=== PATIENT | female | born 1990 | race Two or more races ===

== ENCOUNTER 2023-12-31 22:00 | Emergency (ER) | payer MEDICAID, OTHER ==
[~2023-12-31] VITALS: Ht 162.6 cm; Wt 69.6 kg
[2023-12-31 22:10] VITALS: BP 104/69; RESP 16; TEMP 98.4; O2SAT 98
[2023-12-31 22:16] VITALS: PULSE 63
[2023-12-31] MEDS: KETOROLAC TROMETH 60MG/2ML VIAL IM ONE (22:54)
[2023-12-31 23:14] LABS: Basophils # (auto) 0 10 ^3/uL (0-0.2); Basophils % (auto) 0.4 % (0.0-2.0); Eosinophils # (auto) 0.2 10 ^3/uL (0-0.8); Eosinophils % (auto) 2.9 % (0.0-7.0); Hematocrit 39.8 % (36.0-46.0); Hemoglobin 13.6 g/dL (12.2-16.2); Lymphocytes # (auto) 3.5 10 ^3/uL (0.4-5.4); Mean Corpuscular Hemoglobin 30.5 pg (28.0-32.0); Mean Corpuscular Hgb Conc. 34.2 g/dL (32.0-36.0); Mean Corpuscular Volume 89.1 fL (80.0-100.0); Monocytes # (auto) 0.3 10 ^3/uL (0-1.3); Monocytes % (auto) 4.3 % (0.0-12.0); Neutrophils # (auto) 3.5 10 ^3/uL (1.6-8.6); Neutrophils % (auto) 46.4 % (37.0-80.0); Nucleated Red Blood Cells % 0.1 %; Platelet Count (auto) 246 10^3/uL (140-450); Red Blood Cells 4.46 10^6/uL (4.0-5.20); Red Cell Distribution Width 14.8 % (11.8-14.3); White Blood Cell 7.5 10^3/uL (4.4-10.8)
[2023-12-31 23:25] LABS: Urine Bacteria None Seen /hpf (None Seen)
[2023-12-31 23:27] LABS: Chloride 109 mmol/L (98-107); Sodium 141 mmol/L (136-145)
[2023-12-31 23:28] LABS: Anion Gap 5 (5-15); Calcium 9.6 mg/dL (8.7-10.4); Carbon Dioxide 27 mmol/L (20-31)
[2023-12-31 23:33] LABS: BUN/Creatinine Ratio 14.7 (10.0-20.0); Blood Urea Nitrogen 11 mg/dL (9-23); Glucose 101 mg/dL (74-106)
[2023-12-31] MEDS: LACTULOSE 20Gm/30ML SOLN PO ONE (23:44)
[2023-12-31 23:45] LABS: Urine Blood Negative /uL (Negative); Urine Clarity Clear (Clear); Urine Color Colorless (Yellow); Urine Protein, UAD Negative (Negative); Urine Urobilinogen Normal (Negative); Urine WBC 1 /hpf (0 - 5)
[2024-01-01] MEDS ORDERED: LACT10SO3 PO (00:09)
== END 2024-01-01 00:25 | disposition home or self-care (01) ==
LOC: ER 22:00
DX: R55 Syncope and collapse (principal); K59.00 Constipation, unspecified
CPT/HCPCS: 36415; 70450; 74018; 80048; 81001; 81025; 82962; 85025; 93005; 96372; 99285; J1885